=== PATIENT | female | born 1975 | race American Indian/Alaskan Native ===

== ENCOUNTER 2019-03-17 17:20 | Emergency (ER) | payer SELFPAY ==
--- NOTE | 2019-03-17 17:53 | Event Note ---
ED Screening Note Date of service: 03/17/19 Time: 17:50 ED Screening Note: This is a 44 y.o. F. that presents to the ER with RLQ pain for 4 days. Reports pain is worse post urination. PMH HTN This initial assessment/diagnostic orders/clinical plan/treatment(s) is/are subject to change based on patients health status, clinical progression and re- assessment by fellow clinical providers in the ED. Further treatment and workup at subsequent clinical providers discretion. Patient/guardian urged not to elope from the ED as their condition may be serious if not clinically assessed and managed. Initial orders include: Labs and CT of abdomen and pelvis
[2019-03-17 19:16] LABS: Bacteria,Urine 1+ /HPF (Negative); Bilirubin,Urine NEG (Negative); Blood,Urine NEG (Negative); Color,Urine Yellow (Yellow); Protein,Urine <15 mg/dL mg/dL (Negative); Urobilinogen,Urine < 2.0 mg/dL (<2.0)
[2019-03-17 19:30] LABS: Basophils # (Auto) 0.1 K/mm3 (0.0-0.1); Basophils % (Auto) 0.6 % (0.0-1.8); Eosinophils # (Auto) 0.3 K/mm3 (0.0-0.4); Eosinophils % (Auto) 3.4 % (0.0-4.3); Hematocrit 36.6 % (30.3-42.9); Hemoglobin 11.3 gm/dl (10.1-14.3); Lymphocytes # (Auto) 3.6 K/mm3 (1.2-5.4); Lymphocytes % (Auto) 39.5 % (13.4-35.0); Mean Corpuscular HGB Conc 31 % (30-34); Mean Corpuscular Volume 76 fl (79-97); Monocytes # (Auto) 0.9 K/mm3 (0.0-0.8); Monocytes % (Auto) 10.1 % (0.0-7.3); Platelet Count 429 K/mm3 (140-440); Red Blood Count 4.79 M/mm3 (3.65-5.03); Red Cell Distribution Width 17.8 % (13.2-15.2)
[2019-03-17 19:53] LABS: Alanine Aminotransferase 18 units/L (7-56); BUN/Creatinine Ratio 14; Blood Urea Nitrogen 10 mg/dL (7-17); Calcium 9.3 mg/dL (8.4-10.2); Hemolysis Index 5
[2019-03-17] MEDS ORDERED: MORPHINE IV ONE (20:40)
[2019-03-17] MEDS ORDERED: PEPCID IV ONE (20:40)
[2019-03-17] MEDS ORDERED: ZOFRAN IV ONE (20:40)
--- NOTE | 2019-03-17 20:50 | Cat Scan Report ---
CT ABDOMEN AND PELVIS WITH CONTRAST INDICATION: RLQ tenderness. COMPARISON: No relevant prior imaging study available. TECHNIQUE: Axial, coronal and sagittal CT imaging of the abdomen and pelvis was performed after inje ction of 100 mL Omnipaque [address] scans at this location are performed using CT dose re duction for ALARA by means of automated exposure control. FINDINGS: LOWER CHEST: No significant abnormality. LIVER: No significant abnormality. BILIARY: No significant abnormality. PANCREAS: No significant abnormality. SPLEEN: No significant abnormality. ADRENALS: No significant abnormality. KIDNEYS AND URETERS: No significant abnormality. GI TRACT: No significant abnormality of the stomach, small bowel or colon. Unremarkable appendix. PERITONEUM: No free fluid. No free air. No fluid collection. LYMPH NODES: No significant adenopathy. VASCULATURE: No significant abnormality. URINARY BLADDER: No significant abnormality. REPRODUCTIVE ORGANS: There is a probable uterine fundal fibroid measuring 4.8 x 4.3 cm on image 72 of series 4. No additional significant abnormality. ADDITIONAL FINDINGS: None. SKELETAL SYSTEM: No acute abnormality. Mild degenerative changes are present along the spine and SI j oints. IMPRESSION: 1. No acute abnormality of the abdomen or pelvis. 2. Probable uterine fibroid as above. Signer Name: Iftikhar Montenegro MD Signed: 03/17/2019 8:45 PM Workstation Name: [id number]
--- NOTE | 2019-03-17 22:05 | Emergency Department Report ---
ED Abdominal Pain HPI - General Chief Complaint: Abdominal Pain Stated Complaint: LOWER RT SIDE/ABD PAIN/PRESURRE Time Seen by Provider: 03/17/19 17:50 Source: patient Mode of arrival: Ambulatory Limitations: No Limitations - History of Present Illness Initial Comments: Patient is a 44-year-old -[place]og[place] female with a history of hypertension who presents to the ED with complaint of acute onset persistent severe lower abdominal pain radiating to the right lower quadrant for the last 4 days with nausea. Patient denies vaginal bleeding, dysuria, urinary frequency and urgency, diarrhea, fever, chills, vaginal discharge, traumatic injury, hemat uria, back pain, dizziness or headache, vomiting or hematochezia. Patient states that she has been taking [id number]-boa-[id number] medications with no relief. MD Complaint: abdominal pain -: Sudden, days(s) (4) Location: RLQ, suprapubic Radiation: RLQ, suprapubic Migration to: no migration Severity: severe Severity scale (0 -10): 7 Quality: cramping, aching, sharp Consistency: constant Improves With: nothing Worsens With: bowel movement, movement Associated Symptoms: denies other symptoms, nausea. denies: vomiting, diarrhea, fever, chills, constipation, dysuria, hematemesis, hematochezia, melena, he maturia, anorexia, syncope Treatments Prior to Arrival: NSAIDs - Related Data LMP Date: 02/25/19 Previous Rx's Medication Instructions Recorded Last Taken Type Ibuprofen [Motrin] 800 mg PO Q8HR PRN #20 tablet 03/17/19 Unknown Rx Ondansetron [Zofran Odt] 4 mg PO Q6HR PRN #15 tab.rapdis 03/17/19 Unknown Rx traMADol [Ultram] 50 mg PO Q6HR PRN #12 tablet 03/17/19 Unknown Rx Allergies Allergy/AdvReac Type Severity Reaction Status Date / Time hydromorphone [From Dilaudid] Allergy Rash Verified 03/17/19 17:23 ED Review of Systems ROS: Stated complaint: LOWER RT SIDE/ABD PAIN/PRESURRE Other details as noted in HPI Constitutional: denies: chills, fever Eyes: denies: eye pain, eye discharge, vision change ENT: denies: ear pain, throat pain Respiratory: denies: cough, shortness of breath, wheezing Cardiovascular: denies: chest pain, palpitations Endocrine: no symptoms reported Gastrointestinal: abdominal pain, nausea. denies: diarrhea Genitourinary: denies: urgency, dysuria, discharge Musculoskeletal: denies: back pain, joint swelling, arthralgia Skin: denies: rash, lesions Neurological: denies: headache, weakness, paresthesias Psychiatric: denies: anxiety, depression Hematological/Lymphatic: denies: easy bleeding, easy bruising ED Past Medical Hx - Past Medical History Previous Medical History?: Yes Hx Headaches / Migraines: Yes Additional medical history: hernia - Surgical History Past Surgical History?: Yes Additional Surgical History: hernia repair x2. x 2 - Social History Smoking Status: Current Every Day Smoker Substance Use Type: Alcohol - Medications Home Medications: Home Medications Medication Instructions Recorded Confirmed Last Taken Type Ibuprofen [Motrin] 800 mg PO Q8HR PRN #20 tablet 03/17/19 Unknown Rx Ondansetron [Zofran Odt] 4 mg PO Q6HR PRN #15 tab.rapdis 03/17/19 Unknown Rx traMADol [Ultram] 50 mg PO Q6HR PRN #12 tablet 03/17/19 Unknown Rx ED Physical Exam - General Limitations: No Limitations General appearance: alert, in no apparent distress - Head Head exam: Present: atraumatic, normocephalic, normal inspection - Eye Eye exam: Present: normal appearance, PERRL, EOMI Pupils: Present: normal accommodation - ENT ENT exam: Present: normal exam, normal orophraynx, mucous membranes moist, TM's normal bilaterally, normal external ear exam - Neck Neck exam: Present: normal inspection, full ROM - Respiratory Respiratory exam: Present: normal lung sounds bilaterally. Absent: respiratory distress, wheezes, rales, rhonchi, chest wall tenderness, accessory muscle use, decreased breath sounds, prolonged expiratory - Cardiovascular Cardiovascular Exam: Present: regular rate, normal rhythm, normal heart sounds. Absent: systolic murmur, diastolic murmur, rubs, gallop - GI/Abdominal GI/Abdominal exam: Present: soft, tenderness (Suprapubic and RLQ tenderness), normal bowel sounds. Absent: guarding, rebound, hyperactive bowel sounds, organ omegaly - Bi-manual exam: Present: other (Deferred) - Extremities Exam Extremities exam: Present: normal inspection, full ROM, normal capillary refill - Back Exam Back exam: Present: normal inspection, full ROM. Absent: tenderness, muscle spasm, paraspinal tenderness - Neurological Exam Neurological exam: Present: alert, oriented X3, CN II-XII intact, normal gait, reflexes normal - Psychiatric Psychiatric exam: Present: normal affect, normal mood - Skin Skin exam: Present: warm, dry, intact, normal color. Absent: rash ED Course Vital Signs 03/17/19 03/17/19 17:50 21:08 Temperature 99.7 F H Pulse Rate 94 H Respiratory 20 16 Rate Blood Pressure 151/104 O2 Sat by Pulse 96 Oximetry - Reevaluation(s) Reevaluation #1: 03/17/19 22:06 This is a 44-year-old female who presented to the ED with acute onset persistent suprapubic pain that radiates to the right lower quadrant for 4 days. In the ED, patient is alert and oriented 3 and is not in distress but appears to be in pain. Lab test results were reviewed and are all nonactionable. Patient was treated for pain in the ED and abdomen pelvis CT scan with contrast shows a prob able uterine fundal fibroid measuring 4.8 x 4.3 cm. No additional significant abnormality. On reevaluation, patient's pain was well controlled with medications. Patient's pain is likely due to the uterine fibroids since there are no other abnormal findings. Patient will discharged home on pain me dications and antiemetics and advised to follow-up with her [facility] [employer] physician in 7-10 days for reevaluation or return to the ED immediately if symptoms get worse. 03/17/19 22:07 ED Medical Decision Making - Lab Data Result diagrams: 03/17/19 19:09 03/17/19 19:09 - Radiology Data Radiology results: report reviewed, image reviewed Findings [facility] [address] [place] [address] Cat Scan Report Signed Patient: AMARILYS NUNEZ MR#: [id number] : 1975 Acct:[id number] Age/Sex: 44 / F ADM Date: 03/17/19 Loc: ED Attending Dr: Ordering Physician: ANNA RIOS Date of Service: 03/17/19 Procedure(s): CT abdomen pelvis w con Accession Number(s): [id number] cc: ANNA RIOS CT ABDOMEN AND PELVIS WITH CONTRAST INDICATION: RLQ tenderness. COMPARISON: No relevant prior imaging study available. TECHNIQUE: Axial, coronal and sagittal CT imaging of the abdomen and pelvis was performed after injection of 100 mL Omnipaque [address] scans at this location are performed using CT dose reduction for ALARA by means of automated exposure control. FINDINGS: LOWER CHEST: No significant abnormality. LIVER: No significant abnormality. BILIARY: No significant abnormality. PANCREAS: No significant abnormality. SPLEEN: No significant abnormality. ADRENALS: No significant abnormality. KIDNEYS AND URETERS: No significant abnormality. GI TRACT: No significant abnormality of the stomach, small bowel or colon. Unrem arkable appendix. PERITONEUM: No free fluid. No free air. No fluid collection. LYMPH NODES: No significant adenopathy. VASCULATURE: No significant abnormality. URINARY BLADDER: No significant abnormality. REPRODUCTIVE ORGANS: There is a probable uterine fundal fibroid measuring 4.8 x 4.3 cm on image 72 of series 4. No additional significant abnormality. ADDITIONAL FINDINGS: None. SKELETAL SYSTEM: No acute abnormality. Mild degenerative changes are present along the spine and SI joints. IMPRESSION: 1. No acute abnormality of the abdomen or pelvis. 2. Probable uterine fibroid as above. Signer Name: Iftikhar Montenegro MD Signed: 03/17/2019 8:45 PM Workstation Name: [id number] Transcribed By: PETERSON Dictated By: Iftikhar Montenegro MD Electronically Authenticated By: Iftikhar Montenegro MD Signed Date/Time: 03/17/192044 DD/ 41 TD/TT: - Medical Decision Making This is a 44-year-old female who presented to the ED with acute onset persistent suprapubic pain that radiates to the right lower quadrant for 4 days. In the ED, patient is alert and oriented 3 and is not in distress but appears to be in pain. Lab test results were reviewed and are all nonactionable. Patient was treated for pain in the ED and abdomen pelvis CT scan with contrast shows a probable uterine fundal fibroid measuring 4.8 x 4.3 cm. No additional significant abnormality. On reevaluation, patient's pain was well controlled with medications. Patient's pain is likely due to the uterine fibroids since there are no other abnormal findings. Patient will discharged home on pain medications and antiemetics and advised to follow-up with her [facility] [employer] physician in 7-10 days for reevaluation or return to the ED immediately if symptoms get worse. - Differential Diagnosis Abodminal pain; UTI; Fibroids; Appendicitis; Colitis; PID Critical care attestation.: If time is entered above; I have spent that time in minutes in the direct care of this critically ill patient, excluding procedure time. ED Disposition Clinical Impression: Abdominal pain Qualifiers: Abdominal location: lower abdomen, unspecified Qualified Code(s): R10.30 - Lo wer abdominal pain, unspecified Uterine fibroid Qualifiers: Uterine leiomyoma location: unspecified location Qualified Code(s): D25.9 - Leiomyoma of uterus, unspecified Disposition: TO HOME OR SELFCARE Is pt being admited?: No Does the pt Need Aspirin: No Condition: Stable Instructions: Abdominal Pain (ED), Uterine Fibroids (ED) Additional Instructions: Take pain medications as needed with food, drink plenty of fluids and follow up with your [facility] [employer] [employer] physician or Dr. Arlyn Veronica in 7-10 days for reevaluation. Return to the ED immediately if symptoms get worse. Prescriptions: Ibuprofen [Motrin] 800 mg PO Q8HR PRN #20 tablet PRN Reason: Pain , Severe (7-10) traMADol [Ultram] 50 mg PO Q6HR PRN #12 tablet PRN Reason: Pain Ondansetron [Zofran Odt] 4 mg PO Q6HR PRN #15 tab.rapdis PRN Reason: Nausea Referrals: PRAVIN ANSARI MD [Staff Physician] - 3-5 Days Time of Disposition: 22:11 Print Language: [facility] [place]
[2019-03-17] MEDS ORDERED: APRESOLINE PO ONE (22:33)
[2019-03-18 05:05] VITALS: BP 179/100
== END 2019-03-17 23:00 | disposition home or self-care (01) ==
LOC: ED 17:20
DX: D25.9 Leiomyoma of uterus, unspecified (principal); Z88.8 Allergy status to other drugs, medicaments and biological substances; F17.200 Nicotine dependence, unspecified, uncomplicated
CPT/HCPCS: 36415; 74177; 80053; 81001; 83690; 84703; 85025; 96374; 96375; 99284; J2270; J2405; Q9967